=== PATIENT | male | born 1975 | race Two or more races ===

== ENCOUNTER 2024-11-05 19:27 | Emergency (ER) | payer MEDICAID, SELFPAY ==
[2024-11-05 19:28] VITALS: BMI 28.8
[2024-11-05 19:37] VITALS: BP 155/81; PULSE 61; RESP 18; TEMP 36.9; O2SAT 95
--- NOTE | 2024-11-05 19:42 | EKG_ITS ---
[facility] Test Date: 2024-11-05 Pat Name: KEYUR BRITO Department: Room: - Gender: Male [employer]: : 1975 Requested By: David Agrawal Order Number: [id number] Reading MD: David Agrawal Measurements Intervals [place] Rate: 65 P: 32 WA: 156 QRS: -55 QRSD: 154 T: -20 QT: 451 QTc: 471 Interpretive Statements SINUS RHYTHM RIGHT BUNDLE BRANCH BLOCK [120+ ms QRS DURATION, UPRIGHT V1, 40+ ms S IN I/aVL/V4/V5/V6] LEFT ANTERIOR FASCICULAR BLOCK [QRS AXIS <= -45, QR IN I, RS IN II] VOLTAGE CRITERIA FOR LVH [MEETS CRITERIA IN ONE OF: R(aVL), S(V1), R(V5), R(V5/V6)+S(V1)] POSSIBLE SEPTAL MYOCARDIAL INFARCTION , PROBABLY OLD [30 ms Q WAVE IN V1/V2] LATERAL MYOCARDIAL INFARCTION , PROBABLY RECENT [40+ ms Q WAVE AND/OR ST/T ABNORMALITY IN I/aVL/V5/V6] ACUTE MT Compared to ECG 01/25/2024 04:23:07 Myocardial infarct finding now present Sinus bradycardia no longer present /store/S0/[id number]/[id number].pdf
--- NOTE | 2024-11-05 19:42 | XR_ITS ---
Examination: CT brain head without contrast. 2-D sagittal coronal reconstructions Date and time of exam:November 05, 2024 0751 hrs. Indications: Syncopal episode today, patient fell CTDI: vol (mGy):48.2 DLP: (mGycm):909 Technique: Multiple CT axial sections of the brain have been obtained, 5 mm slice thickness. Contrast has not been administered. 2-D sagittal, coronal reconstructions have been obtained Low dose protocols were performed. One or more of the following dose reduction techniques were used; automated exposure control, adjustment of the mA and/or KV according to patient size, use of iterative reconstruction technique. Findings: No significant ventricular enlargement. 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 No mass effect or midline shift Basal cisterns are not remarkable. Fourth ventricle is midline. Cranial vault intact. Impression: Negative for acute hemorrhage, mass effect or midline shift Brain MRI follow-up, would best assess for acute infarct
--- NOTE | 2024-11-05 19:43 | EDRME_ITS ---
Rapid Medical Screening Exam [facility] Arrival date/time: 11/05/24 19:27 49-year-old male with a history of hypertension presents to the emergency room with a chief complaint of a syncopal episode that occurred an hour ago. Patient states he began having a coughing episode and states he lost consciousness for about 1 minute. Patient denies any previous history of this. I have greeted and performed a focused initial assessment of this patient. A comprehensive ED assessment and evaluation of the patient, analysis of all test results, and completion of the medical decision making process will be conducted by additional ED providers. Chief Complaint: Syncope / Near Syncope Vital signs: Vital Signs Temperature 98.5 F 11/05/24 19:37 Pulse Rate 61 11/05/24 19:37 Respiratory Rate 18 11/05/24 19:37 Blood Pressure 155/81 H 11/05/24 19:37 Pulse Oximetry (%) 95 11/05/24 19:37 Oxygen Delivery Method Room Air 11/05/24 19:37 Vital signs reviewed by provider: Yes
[2024-11-05 20:12] LABS: Basophils # (Auto) 0.1 Thou/mm3 (0.0-0.2); Basophils % (Auto) 1 % (0-2.5); Eosinophils # (Auto) 0.5 Thou/mm3 (0.0-0.5); Eosinophils % (Auto) 6 % (0-10); Hematocrit 45.5 % (41.0-53.0); Immature Granulocytes % (Auto) 0 % (0-0); Immature Granulocytes Auto 0.03 Thou/mm3 (0.00-0.00); Lymphocytes # (Auto) 2.3 Thou/mm3 (1.0-4.8); Lymphocytes % (Auto) 26 % (10-50); Mean Corpuscular HGB Conc 35.2 g/dl (31.0-37.0); Mean Corpuscular Hemoglobin 30.2 pg (25.0-35.0); Mean Corpuscular Volume 86 fL (80-100); Monocytes # (Auto) 0.9 Thou/mm3 (0.0-0.8); Monocytes % (Auto) 10 % (0-12); Neutrophils # (Auto) 5.1 Thou/mm3 (1.8-7.7); Neutrophils % (Auto) 57 % (37-80); Nucleated Red Blood Cell % 0 /100 WBC (0); Platelet Count 252 Thou/mm3 (140-440); RDW Standard Deviation 38.3 fL (35.1-43.9); Red Blood Count 5.29 Miln/mm3 (4.50-5.90)
[2024-11-05 20:13] LABS: Collection Type, Urine Clean Catch; Squamous Epithelial Cell,Urine 0 /hpf (0-5)
[2024-11-05 20:18] LABS: Bilirubin,Urine Negative (Negative); Blood,Urine Trace (Negative); Clarity,Urine Clear (Clear/Hazy); Color,Urine Lt-Yellow (Lt Yel-Yel); Glucose, Urine Negative (Negative); Ketones,Urine Negative (Negative); Leukocyte Esterase,Urine Negative (Negative); Nitrite,Urine Negative (Negative); Protein,Urine Negative (Neg - Trace); RBC,Urine 4 /hpf (0-3); Specific Gravity,Urine 1.019 (1.001-1.035); Urobilinogen,Urine Negative mg/dL (0.0-1.0); WBC,Urine < 1 /hpf (0-5)
[2024-11-05 20:36] LABS: Alanine Aminotransferase 34 U/L (10-49); Albumin, Serum 4.9 gm/dL (3.5-5.0); Albumin/Globulin Ratio 1.6 (1.2-2.2); Alkaline Phosphatase 104 U/L (46-116); Anion Gap 7 (7-16); Aspartate Amino Transferase 30 U/L (0-34); BUN/Creatinine Ratio 21 Ratio (12-20); Bilirubin,Total 0.5 mg/dL (0.3-1.2); Blood Urea Nitrogen 17 mg/dL (9-23); Calcium 10.1 mg/dL (8.3-10.6); Calcium (Corrected) 10.1 mg/dL (8.5-10.1); Chloride 101 mMol/L (98-107); Creatinine (Component) 0.8 mg/dL (0.6-1.3); Estimated Creatinine Clearance 119.3 mL/min (>60); Globulin 3.1 gm/dL (2.3-3.5); Glucose 80 mg/dL (74-106); Osmolality,Calculated 278 (275-295); Potassium 3.3 mMol/L (3.4-5.1); Sodium 139 mMol/L (136-145); Troponin I < 0.020 ng/mL (0.0-0.045); eGFR > 60 See Note
[2024-11-05 21:42] LABS: Amphetamine/Methamp Scrn,U Negative (Negative); Barbiturate Screen,Urine Negative (Negative); Benzodiazepines Screen,Urine Negative (Negative); Benzoylecgonine Screen, Ur Negative (Negative); Fentanyl Screen,Urine Negative (Negative); Opiate Screen,Urine Negative (Negative); THC Screen,Urine Negative (Negative)
[2024-11-05 23:17] LABS: Troponin I < 0.020 ng/mL (0.0-0.045)
[2024-11-05 23:19] VITALS: BP 136/70; PULSE 59; RESP 16; TEMP 36.6; O2SAT 96
[2024-11-06 00:20] VITALS: BP 130/75; PULSE 50; RESP 16; TEMP 36.7; O2SAT 95
--- NOTE | 2024-11-06 00:20 | PC.NURSE ---
First contact with pt in Room 9, pt connected to bedside cashier payments received, whiteboard updated, call light within reach, family member at bedside.
--- NOTE | 2024-11-06 00:43 | EDNOTE_ITS ---
ED Syncope RME/HPI General Chief Complaint: Syncope / Near Syncope Stated Complaint: FAINTED TODAY, HEADACHE Time Seen by Provider: 11/05/24 22:01 Arrival date/time: 11/05/24 19:27 RME / HPI RME / HPI narrative: 11/05/24 19:27 49-year-old male with a history of hypertension presents to the emergency room with a chief complaint of a syncopal episode that occurred an hour ago. Patient states he began having a coughing episode and states he lost consciousness for about 1 minute. Patient denies any previous history of this. I have greeted and performed a focused initial assessment of this patient. A comprehensive ED assessment and evaluation of the patient, analysis of all test results, and completion of the medical decision making process will be conducted by additional ED providers. ----- Dr. Acevedo?s Main ED Evaluation: 49yo male presents to the ED for a chief complaint of syncope. Patient states he was eating this morning and felt like I was drowning and running out of air after he felt like the food went down the wrong pipe. He states he passed out and woke up with a headache, so he came in for evaluation. He endorses coughing excessively after he ate. He denies any fever, chills or any other associated symptoms. No known allergies. Related Data Home Medications ?Medication ?Instructions ?Recorded ?Confirmed amlodipine 5 mg tablet 5 mg PO DAILY 01/25/24 01/25/24 Allergies Allergy/AdvReac Type Severity Reaction Status Date / Time No Known Allergies Allergy Verified 04/10/19 13:21 Review of Systems Review of Systems Systems Reviewed: All systems reviewed, normal except as documented Narrative Review of Systems: Gen: No fever, no chills, no weight loss, + choking EYES: No discharge, no visual changes, no pain HEENT: No ear pain, no congestion, no sore throat PULM: No shortness of breath, + cough, no congestion CV: No chest pain, no dyspnea on exertion, no palpitations GI: No nausea, no vomiting, no diarrhea, no pain, no constipation : No frequency, no urgency, no dysuria Musc/skel: No joint pain, no back pain Skin: No rash. Warm and dry. Psyc: No hallucinations, no depression Heme/Lymph: No easy bleeding or bruising tendencies Neuro: No weakness, no headache Past Medical History Past Medical History CARDIAC: Positive Cardiac Disorders and Hypertension; Negative Congestive Heart Failure RESPIRATORY: Negative Chronic Obstructive Pulmonary Disease (COPD) or Asthma GENITOURINARY: Negative Renal Disease ENDOCRINE: Negative Diabetes Mellitus Type 1 or Diabetes Mellitus Type 2 HEMATOLOGIC: Negative Sickle Cell Disease PSYCHO/SOCIAL: Positive Anxiety Social History SMOKING STATUS: Never smoker SUBSTANCE USE: does not use ED Exam Narrative Physical exam: GENERAL APPEARANCE: AxOx4, generally well-appearing, no acute distress. HEENT: NC, AT. MMM. EOMI, clear conjunctiva, oropharynx clear. NECK: Supple without lymphadenopathy. No stiffness or restricted ROM. HEART: Normal rate and regular rhythm, normal S1/S1, no m/r/g LUNGS: CTAB, moving air well. No crackles or wheezes are heard. ABDOMEN: Soft, nontender, nondistended with good bowel sounds heard. BACK: No midline C/T/L spine pain or deformity, No CVAT, no obvious deformity. EXTREMITIES: Without cyanosis, clubbing or edema. MUSCULOSKELETAL: FROM of all major joints, no chest tenderness NEUROLOGICAL: Grossly nonfocal. Alert and oriented, moving all 4 extremities. CN not formally tested but appear grossly intact. Observed to ambulate with normal gait. Skin: Warm and dry without any rash. Course Quality Measures none Orders Category Date Time Status EKG (ED ONLY) *Do not use* NOW Care 11/05/24 19:[address] head/brain wo con Stat Exams 11/05/24 19:42 Completed EKG (ED Only) Stat Exams 11/05/24 19:42 Draft CBC Stat Lab 11/05/24 20:03 Completed Comprehensive Metabolic Panel Stat Lab 11/05/24 20:03 Completed Drug Screen,Urine Stat Lab 11/05/24 20:06 Completed Troponin I Stat Lab 11/05/24 20:03 Completed Troponin I Stat Lab 11/05/24 22:47 Completed Urinalysis Stat Lab 11/05/24 20:06 Completed Vital Signs Vital signs: Vital Signs Temperature 98.5 F 11/05/24 19:37 Pulse Rate 61 11/05/24 19:37 Respiratory Rate 18 11/05/24 19:37 Blood Pressure 155/81 H 11/05/24 19:37 Pulse Oximetry (%) 95 11/05/24 19:37 Oxygen Delivery Method Room Air 11/05/24 19:37 Pulse ox is 95% on room air, which is normal according to my interpretation. Syncope MDM Narrative MDM Narrative:: Scribe Attestation: 11/06/24 - Marsha Todd am scribing for and in the presence of Dr. Acevedo. Patient data External records reviewed:: [facility] previous records (Per chart review, patient was seen here on 01/25/24 for myalgia.) Clinical information provided by:: patient Social determinants that could affect healthcare access:: none Patient has the following chronic illnesses:: HTN How is presenting disease/condition affected by chronic disease/condition?: u neffected by Evaluation data The following diagnostics were reviewed and interpreted by me:: lab results, radiology exam(s) and EKG tracing(s) Lab and/or radiology exams considered but not ordered:: none Interpretation Summary: CBC is normal, Potassium is slightly low at 3.3, initial and repeat troponins are normal, UA is unremarkable, UDS is negative, according to my interpretation. EKG done at 1946, NSR, rate of 65, widened QRS, RBBB, no acute ST or T-wave c hanges, unchanged from previous EKG on 02/14/24, according to my interpretation. ----- [facility] Report Signed Patient: KEYUR BRITO Record#: [id number] Birthdate: 1975 Age/Sex: 49 / M Location: [facility] Attending Dr: Ordering Physician: David Dominguez Date of Service: 11/05/24 Procedure(s): CT head/brain wo con Accession Number(s): [id number] cc: David Dominguez; Ankush Crowder MD; Humble Calero MD~ Examination: CT brain head without contrast. 2-D sagittal coronal reconstructions Date and time of exam:November 05, 2024 0751 hrs. Indications: Syncopal episode today, patient fell CTDI: vol (mGy):48.2 DLP: (mGycm):909 Technique: Multiple CT axial sections of the brain have been obtained, 5 mm slice thickness. Contrast has not been administered. 2-D sagittal, coronal reconstructions have been obtained Low dose protocols were performed. One or more of the following dose reduction techniques were used; automated exposure control, adjustment of the mA and/or KV according to patient size, use of iterative reconstruction technique. Findings: No significant ventricular enlargement. 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 No mass effect or midline shift Basal cisterns are not remarkable. Fourth ventricle is midline. Cranial vault intact. Impression: Negative for acute hemorrhage, mass effect or midline shift Brain MRI follow-up, would best assess for acute infarct Dictated By: Humble Calero MD Signed By: <Electronically signed by Humble Calero MD in OV> 11/05/242057 Medications / Prescriptions Medications or Prescriptions considered but not ordered:: none Medication administrations:: none Consultations Consultation(s) initiated? (list below): No Diagnosis Syncope Differential Diagnosis: vasovagal syncope and other (post-tussive, syncope, aspiration in choking episode) Most likely diagnosis given after review of the tests above:: see below Admission Indicated Admission indicated?: not indicated Admission Request Was there a request for admission?: No Disposition Plan Disposition Plan: Discharge Discharge Attestation Discharge Attestation: The patient and all family members were given an opportunity to ask questions and understood the discharge instructions. Discharge instructions specifically effects, indications for sooner follow up or return to the emergency department, and the expected course of current diagnosis. Patient condition: Stable Discharge Plan Plan Patient Disposition: HOME (Self Care) Prescriptions/Referrals Prescriptions/Med Rec: No Action amlodipine 5 mg tablet 5 mg PO DAILY Referrals: Ankush Crowder MD [Primary Care Provider] - In 1 week Problem List Clinical Impression: Post-tussive syncope Patient/Caregiver Discharge Instructions Education Materials: ED Fainting, Vagal Reaction Additional Instructions: Carroll un seguimiento con keller m?dico de atenci?n primaria en 3 a 5 d?as para volver a controlarlo. Puede regresar al departamento de emergencias antes si los s?ntomas empeoran o si nota alg?n problema nuevo que le preocupe. Print Language: Serbian Stand Alone Forms: Brenda Award Info., Patient Portal Info Letter
[2024-11-06 01:59] VITALS: BP 124/72; PULSE 49; RESP 16; TEMP 36.7; O2SAT 95
== END 2024-11-06 01:59 | disposition home or self-care (01) ==
PROVIDERS: Nurse Practitioner Family; Emergency Provider Emergency Medicine; PCP Family Medicine
DX: R55 Syncope and collapse (principal); R05.8 Other specified cough; I10 Essential (primary) hypertension
CPT/HCPCS: 36415; 70450; 80053; 80307; 81001; 84484; 85025; 93005; 99284

== ENCOUNTER 2025-03-04 21:28 | Emergency (ER) | payer MEDICAID, SELFPAY ==
[2025-03-04 22:55] VITALS: BP 153/81; PULSE 77; RESP 20; TEMP 39; O2SAT 97
--- NOTE | 2025-03-04 23:22 | XR_ITS ---
Examination: CT abdomen with intravenous contrast CT pelvis with intravenous contrast 2-D coronal reconstructions 2-D sagittal reconstructions Date and time of exam:March 05, 2025 0254 hours Comparison November 03, 2018 INDICATIONS: Generalized abdominal pain nausea vomiting today. CTDI: vol (mGy) 7.28 DLP: (mGycm) 418 Technique: Multiple axial sections of the abdomen and pelvis have been obtained. 64 slice high-resolution scanner used. 3 mm axial sections have been obtained, post intravenous injection of 60 cc Isovue 370 2-D sagittal, coronal reconstructions obtained. Low dose protocols were performed. One or more of the following dose reduction techniques were used; automated exposure control, adjustment of the mA and/or KV according to patient size, use of iterative reconstruction technique. Findings: No focal liver or splenic lesions No gallstones No pancreatic or adrenal mass No renal or ureteral calculi, no hydronephrosis Aorta normal size Normal appendix The entire colon shows hyperemia and wall thickening including the rectum No prostatomegaly Urinary bladder intact IMPRESSION: Diffuse nonspecific colitis pattern, differential would include ulcerative colitis, Crohn's disease
--- NOTE | 2025-03-04 23:28 | PD.EDNV ---
Nausea/Vomit./Diarrhea-RME/HPI General Chief complaint: Abdominal Pain Stated complaint: ABD PAIN, N/V/D Time Seen by Provider: 03/04/25 23:23 Arrival date/time: 03/04/25 21:28 50M with history of HTN presents to ED with several days of N/V, ab pain/cramping, non-bloody diarrhea, and possible dysuria. Limitations: no limitations Related Data Home Medications ?Medication ?Instructions ?Recorded ?Confirmed amlodipine 5 mg tablet 5 mg PO DAILY 01/25/24 01/25/24 Previous Rx's ?Medication ?Instructions ?Recorded ondansetron 4 mg disintegrating 4 mg PO Q8H PRN nausea and 03/05/25 tablet vomiting #14 tabs Allergies Allergy/AdvReac Type Severity Reaction Status Date / Time No Known Allergies Allergy Verified 03/04/25 21:29 Review of Systems Review of Systems Systems Reviewed: All systems reviewed, normal except as documented Constitutional Constitutional: Reports system reviewed and no additional complaints, except as documented, Denies fever(s) and Denies headache(s) ENT Ears, Nose, Mouth, and Throat: Denies disequilibrium and Denies headache(s) Cardiovascular Cardiovascular: Reports system reviewed and no additional complaints, except as documented, Denies chest pain and Denies dyspnea Respiratory Respiratory: Reports system reviewed and no additional complaints, except as documented, Denies cough and Denies dyspnea Gastrointestinal Gastrointestinal: Reports system reviewed and no additional complaints, except as documented, Reports as per HPI, Reports abdominal pain, Reports diarrhea, Reports nausea and Reports vomiting Genitourinary Genitourinary: Reports as per HPI and Reports difficulty urinating Neurologic Neurologic: Reports system reviewed and no additional complaints, except as documented, Denies confusion, Denies disequilibrium and Denies headache(s) Psychiatric Psychiatric: Denies confusion Past Medical History Past Medical History CARDIAC: Positive Cardiac Disorders and Hypertension; Negative Congestive Heart Failure RESPIRATORY: Negative Chronic Obstructive Pulmonary Disease (COPD) or Asthma GENITOURINARY: Negative Renal Disease ENDOCRINE: Negative Diabetes Mellitus Type 1 or Diabetes Mellitus Type 2 HEMATOLOGIC: Negative Sickle Cell Disease PSYCHO/SOCIAL: Positive Anxiety Social History SMOKING STATUS: Never smoker SUBSTANCE USE: does not use ED Exam General Limitations: Present no limitations General appearance: Present alert and in no apparent distress Head Head exam: Present atraumatic Eye Eye exam: Present normal appearance, PERRL and EOMI ENT ENT exam: Present normal exam, normal oropharynx and mucous membranes moist Neck Neck exam: Present normal inspection, full ROM and trachea midline Chest Chest inspection: Present normal inspection and symmetric chest wall rise Respiratory Respiratory exam: Present normal lung sounds bilaterally Cardiovascular Cardiovascular exam: Present regular rate, normal rhythm and normal heart sounds Abdominal Exam Abdominal exam: Present soft, tenderness and normal bowel sounds Extremities Exam Extremities exam: Present normal inspection and full ROM Back Exam Back exam: Present normal inspection and full ROM Neurological Exam Neurological exam: Present alert, oriented X3 and CN II-XII intact Psychiatric Psychiatric exam: Present normal affect and normal mood Skin Skin exam: Present warm, dry, intact and normal color Course Quality Measures none Orders Category Date Time Status Bedside COVID-19 Antigen Test NOW Care 03/04/25 23:22 Active Bedside Influenza A&B Antigen Test NOW Care 03/04/25 23:[address] Screening NOW Care 03/04/25 23:22 Active Insert IV NOW Care 03/04/25 23:[address] abdomen pelvis w con Stat Exams 03/04/25 23:22 Taken Blood Culture (Lab) Stat Lab 03/04/25 23:23 Received CBC Stat Lab 03/04/25 23:30 Completed CMP [Comprehensive Metabolic Panel] Stat Lab 03/04/25 23:30 Completed Lactate (Lactic Acid) Stat Lab 03/04/25 23:30 Completed Lipase Stat Lab 03/04/25 23:30 Completed Procalcitonin Stat Lab 03/04/25 23:30 Completed UA [Urinalysis] Stat Lab 03/04/25 00:00 Completed Urine Culture Stat Lab 03/04/25 00:00 Received Acetaminophen Tab [Tylenol ES Tab] Med 03/04/25 23:22 Discontinued 1,000 mg PO X1 ONE Ketorolac Inj [Toradol Inj] Med 03/04/25 23:22 Discontinued 30 mg IVP X1 ONE Ondansetron Inj [Zofran Inj] Med 03/04/25 23:22 Discontinued 4 mg IV X1 ONE Sodium Chloride 0.9% 1000 ml [Ns] 1,000 ml Med 03/04/25 23:22 Discontinued IV 999 mls/hr Vital Signs Vital signs: Vital Signs Temperature 102.2 F H 03/04/25 22:55 Pulse Rate 77 03/04/25 22:55 Respiratory Rate 20 03/04/25 22:55 Blood Pressure 153/81 H 03/04/25 22:55 Pulse Oximetry (%) 97 03/04/25 22:55 Oxygen Delivery Method Room Air 03/04/25 22:55 O2 at 97% on RA and WNLs Nausea/Vomiting/Diarrhea MDM Narrative MDM Narrative:: 50M with history of HTN presents to ED with several days of N/V, ab pain/cramping, non-bloody diarrhea, and possible dysuria. Physical exam reveals gen ab tenderness. Patient is febrile, but does not appear toxic. CT mild colitis. Minimal leukocytosis. Procal/lactate normal. CMP unremarkable. Swabs neg. UA clean. Likely viral gastroenteritis. Patient data External records reviewed:: [facility] previous records Clinical information provided by:: patient Social determinants that could affect healthcare access:: none Patient has the following chronic illnesses:: HTN How is presenting disease/condition affected by chronic disease/condition?: uneffected by Evaluation data The following diagnostics were reviewed and interpreted by me:: lab results and radiology exam(s) Lab and/or radiology exams considered but not ordered:: ordered Interpretation Summary: above Medications / Prescriptions Medications / Prescriptions considered but not ordered:: ordered Medication administrations:: Medication Administration History Discontinued Medications Acetaminophen (Acetaminophen 500 Mg Tablet) 1,000 mg PO X1 ONE Stop: 03/04/25 23:23 Last Admin: 03/05/25 01:50 Dose: 1,000 mg Documented By: SHANNEN Sodium Chloride (Ns) 1,000 mls @ 999 mls/hr IV .Q1H1M ONE Stop: 03/05/25 00:22 Last Infusion: 03/05/25 03:00 Dose: Infused Documented By: Admin: 03/05/25 01:49 Dose: 999 mls/hr Documented By: SHANNEN Ketorolac Tromethamine (Ketorolac Inj 30 Mg/Ml Vial) 30 mg IVP X1 ONE Stop: 03/04/25 23:23 Last Admin: 03/05/25 01:48 Dose: 30 mg Documented By: SHANNEN Ondansetron HCl (Ondansetron Inj 2 Mg/Ml Inj 2 Ml) 4 mg IV X1 ONE; Protocol Stop: 03/04/25 23:23 Last Admin: 03/05/25 01:49 Dose: 4 mg Documented By: SHANNEN above Consultations Consultation(s) initiated? (list below): No Diagnosis Nausea Differential Diagnosis: traveler's diarrhea, food poisoning, gastroenteritis, clostridium difficile infection, drug-induced nausea and vomiting and dehydration Most likely diagnosis given after review of the tests above:: gastroenteritis Admission Indicated Admission indicated?: not indicated Admission Request Was there a request for admission?: No Disposition Plan Disposition Plan: Discharge Discharge Attestation Discharge Attestation: The patient and all family members were given an opportunity to ask questions and understood the discharge instructions. Discharge instructions specifically effects, indications for sooner follow up or return to the emergency department, and the expected course of current diagnosis. Patient condition: Stable Discharge Plan Plan Patient Disposition: HOME (Self Care) Discharge Disposition comment: Stable Prescriptions/Referrals Prescriptions/Med Rec: New ondansetron 4 mg tablet,disintegrating 4 mg PO Q8H PRN (Reason: nausea and vomiting) Qty: 14 0RF No Action amlodipine 5 mg tablet 5 mg PO DAILY Referrals: Ankush Crowder MD [Primary Care Provider] - In 1 week Problem List Clinical Impression: Gastroenteritis Patient/Caregiver Discharge Instructions Education Materials: ED Diarrhea, Viral (Adult) Additional Instructions: Please follow-up with PCP within 24-48 hours and return immediately if symptoms worsen. Ibuprofen/Tylenol can be used simultaneously for greater fever/pain control. Keep hydrated. Advance diet as tolerated. Print Language: French Stand Alone Forms: Patient Portal Info Letter FLY/ALLEGRA Supervising Physician FLY/ALLEGRA Supervising Physician: Dr. Bustillo
[2025-03-04 23:51] LABS: Basophils % (Auto) 0 % (0-2.5); Eosinophils % (Auto) 0 % (0-10); Hematocrit 45.9 % (41.0-53.0); Hemoglobin 16.1 g/dL (13.5-16.0); Immature Granulocytes % (Auto) 0 % (0-0); Immature Granulocytes Auto 0.02 Thou/mm3 (0.00-0.00); Lymphocytes # (Auto) 0.5 Thou/mm3 (1.0-4.8); Lymphocytes % (Auto) 5 % (10-50); Mean Corpuscular HGB Conc 35.1 g/dl (31.0-37.0); Mean Corpuscular Hemoglobin 30.6 pg (25.0-35.0); Mean Corpuscular Volume 87 fL (80-100); Monocytes # (Auto) 0.7 Thou/mm3 (0.0-0.8); Monocytes % (Auto) 7 % (0-12); Neutrophils # (Auto) 9.7 Thou/mm3 (1.8-7.7); Neutrophils % (Auto) 88 % (37-80); Nucleated Red Blood Cell % 0 /100 WBC (0); Platelet Count 228 Thou/mm3 (140-440); RDW Standard Deviation 39.3 fL (35.1-43.9); Red Blood Count 5.26 Miln/mm3 (4.50-5.90); White Blood Count 10.9 Thou/mm3 (3.8-10.6)
[2025-03-05 00:12] LABS: Alanine Aminotransferase 30 U/L (10-49); Albumin, Serum 4.6 gm/dL (3.5-5.0); Albumin/Globulin Ratio 1.5 (1.2-2.2); Alkaline Phosphatase 93 U/L (46-116); Anion Gap 7 (7-16); Aspartate Amino Transferase 26 U/L (0-34); BUN/Creatinine Ratio 18 Ratio (12-20); Bilirubin,Total 0.6 mg/dL (0.3-1.2); Blood Urea Nitrogen 16 mg/dL (9-23); Carbon Dioxide 25.8 mMol/L (20.0-31.0); Chloride 102 mMol/L (98-107); Creatinine (Component) 0.9 mg/dL (0.6-1.3); Glucose 117 mg/dL (74-106); Lipase 31 U/L (12-53); Osmolality,Calculated 272 (275-295); Potassium 3.5 mMol/L (3.4-5.1); Procalcitonin 0.22 ng/ml (0.0-0.49); Sodium 135 mMol/L (136-145); Total Protein 7.6 gm/dL (5.7-8.2); eGFR > 60 See Note
[2025-03-05 00:51] LABS: Collection Type, Urine Clean Catch
[2025-03-05 00:56] LABS: Bilirubin,Urine Negative (Negative); Blood,Urine 2+ (Negative); Clarity,Urine Turbid (Clear/Hazy); Color,Urine Yellow (Lt Yel-Yel); Glucose, Urine Negative (Negative); Ketones,Urine Negative (Negative); Leukocyte Esterase,Urine Negative (Negative); Nitrite,Urine Negative (Negative); Protein,Urine Trace (Neg - Trace); Specific Gravity,Urine 1.034 (1.001-1.035); Urobilinogen,Urine Negative mg/dL (0.0-1.0)
[2025-03-05 01:14] LABS: RBC,Urine 11 /hpf (0-3); Squamous Epithelial Cell,Urine 4 /hpf (0-5); WBC,Urine 2 /hpf (0-5)
[2025-03-05 01:15] LABS: Amorphous Crystals,Urine Present (Absent)
[2025-03-05 01:16] LABS: Mucus,Urine 1+ /lpf
[2025-03-05 01:47] VITALS: BP 112/66; PULSE 71; RESP 20; TEMP 38.1; O2SAT 95
[2025-03-05 01:48] VITALS: TEMP 38.1
[2025-03-05] MEDS: KETOROLAC INJ 30 MG/ML VIAL IVP (01:48)
[2025-03-05] MEDS: ONDANSETRON INJ 2 MG/ML INJ 2 ML 4 MG IV (01:49)
[2025-03-05] MEDS: SODIUM CHLORIDE 0.9% 1000 ML 1,000 ML 999 ML IV (01:49)
[2025-03-05 01:50] VITALS: TEMP 38.1
[2025-03-05] MEDS: ACETAMINOPHEN 500 MG TABLET 1000 MG PO (01:50)
[2025-03-05 03:23] VITALS: TEMP 37.2
[2025-03-05 03:24] VITALS: BP 108/60; PULSE 60; RESP 18; TEMP 37.2; O2SAT 96
--- NOTE | 2025-03-05 03:35 | PRELIM_ITS ---
CT scan of the abdomen and pelvis with intravenous contrast (axial sections with sagittal and coronal reformats) March 05, 2025 0254 hours Clinical History: Gen ab pain, N/V, diarrhea Comparison: No prior study is available for comparison. Findings: The evaluation is slightly limited due to motion artifact. Bibasilar dependent atelectasis is present. A small hiatal hernia is present. The liver, gallbladder, pancreas, spleen, kidneys and adrenals are unremarkable. No evidence of bowel obstruction. There is mild thickening of the entire colon with associated fat stranding. The appendix is within normal limits (coronal [id number]). There is no mesenteric or retroperitoneal adenopathy. The urinary bladder is unremarkable. There is no free fluid or free air. Degenerative changes are identified in the spine. Impression: Findings consistent with colitis as described. No evidence of bowel obstruction, free air or abscess. Other findings as described above. Report Electronically Signed By: Frances Simmons 03/05/2025 3:35:24 AM [EST]
== END 2025-03-05 03:48 | disposition home or self-care (01) ==
PROVIDERS: Physician Assistant; Emergency Provider Emergency Medicine; PCP Family Medicine
DX: K52.9 Noninfective gastroenteritis and colitis, unspecified (principal)
CPT/HCPCS: 36415; 74177; 80053; 81001; 83605; 83690; 84145; 85025; 87040; 87086; 87400; 87811; 96361; 96374; 96375; 99285; A4649; J1885; J2405; J7030; Q9967; A9270